=== PATIENT | female | born 1995 | race Caucasian/White ===

== ENCOUNTER 2018-09-03 23:16 | Emergency (ER) | payer BC, OTHER ==
[~2018-09-03 23:16] MED LIST: LOR5/325 PO
--- NOTE | 2018-09-03 23:22 | ER Report ---
History and Physical Time Seen By MD: 23:22 HPI/ROS CHIEF COMPLAINT: Bloody diarrhea HISTORY OF PRESENT ILLNESS: 23-year-old female presents ambulatory to the ER complaining of left lower quadrant pain and bloody diarrhea for one day. She reports nausea and vomiting for the last 12 hours. She's been unable to keep anything down. She feels that she can pass out. She denies recent travel exposure to ill contacts or recent antibiotic use. Patient denies fever or chills. Patient denies family history of inflammatory bowel disease. Patient denies dysuria, frequency or hematuria. REVIEW OF SYSTEMS: Respiratory: No cough, no dyspnea. Cardiovascular: No chest pain, no palpitations. Gastrointestinal: As above Musculoskeletal: No back pain. Allergies: Coded Allergies: mushroom (Verified Allergy, Severe, 09/03/18) cashew nut (Verified Allergy, Intermediate, 09/03/18) ceftibuten (Verified Allergy, Intermediate, 09/03/18) Home Meds Active Scripts Hydrocodone Bit/Acetaminophen (HYDROCODON-ACETAMINOPHEN 5-325) 1 Each Tablet, 1 EACH PO Q4-6H PRN for PAIN, #12 TAKE ONE TABLET BY MOUTH EVERY 4-6 HOURS NEEDED FOR PAIN Prov:SAGRARIO MUÑOZ DO 09/04/18 Ondansetron (ZOFRAN ODT) 4 Mg Tab.rapdis, 4 MG PO every 6 hours PRN for NAUSEA/VOMITING, #10 TAB TAKE 1 TABLET BY MOUTH EVERY 12 HOURS Prov:SAGRARIO MUÑOZ DO 09/04/18 Hydrocodone Bit/Acetaminophen (HYDROCODON-ACETAMINOPHEN 5-325) 1 Each Tablet, 1 EACH PO Q4H PRN for PAIN, #12 TAB 0 Refills Prov:LISA BROUSSARD MD 01/07/17 Past Medical/Surgical History Shingles, reactive airway disease, right wrist fracture Reviewed Nurses Notes: Yes Old Medical Records Reviewed: Yes Hx Substance Use Disorder: No Hx Alcohol Use: No Constitutional Vital Sign - Last 24 Hours 09/03/18 09/03/18 09/03/18 09/03/18 23:23 23:24 23:31 23:46 Temp 98.0 Pulse 94 91 84 Resp 20 B/P (MAP) 131/102 131/102 (112) Pulse Ox 88 95 95 O2 Delivery Room Air 09/04/18 09/04/18 09/04/18 09/04/18 00:01 00:11 00:16 00:51 Pulse 83 64 85 Resp 16 B/P (MAP) 132/85 (101) Pulse Ox 83 90 100 95 O2 Delivery Room Air Physical Exam Vital signs stable, afebrile, pulse ox normal General Appearance: The patient is alert, has no immediate need for airway protection and no current signs of toxicity. Slightly pale appearing, skin warm and dry HEENT: Pupils equal and round no injection. Oropharynx with moist membranes, no erythema Respiratory: Chest is non tender, lungs are clear to auscultation. Cardiac: regular rate and rhythm Gastrointestinal: Abdomen is soft. Mild left lower quadrant tenderness, no rebound or guarding, no masses, bowel sounds hyperactive. Musculoskeletal: Neck: Neck is supple and non tender. No lymphadenopathy Extremities have full range of motion and are non tender. Skin: No rashes or lesions. DIFFERENTIAL DIAGNOSIS: After history and physical exam differential diagnosis was considered for abdominal pain including but not limited to appendicitis, cholecystitis, gastritis, gastroenteritis, food poisoning, hemorrhoids, diverticulitis, colitis and urinary tract infection. Medical Decision Making Data Points Result Diagram: 09/03/18 8545 09/03/18 3600 Laboratory Hematology Test 09/03/18 23:22 09/03/18 23:55 Urine Color [place] Urine Clarity Turbid Urine pH 5.0 pH (4.8-9.5) Urine Specific [place] 1.020 Urine Protein 30 mg/dL (NEGATIVE) Urine Glucose (UA) Negative mg/dL (NEGATIVE) Urine Ketones Negative mg/dL (NEGATIVE) Urine Blood Moderate (NEGATIVE) Urine Nitrite Negative (NEGATIVE) Urine Bilirubin Negative (NEGATIVE) Urine Urobilinogen Negative mg/dL (0.2-1.9) Urine Leukocyte Esterase Large (NEGATIVE) Urine RBC 98 /HPF (0-2/HPF) Urine WBC 450 /HPF (0-5/HPF) Urine WBC Clumps Mod /HPF Urine Squamous Epithelial Cells Many /LPF (</=FEW) Urine Transitional Epithelial Cells Many /LPF (NONE-FEW) Urine Calcium Oxalate Crystals Moderate /HPF (NONE) Urine Amorphous Crystals Few /HPF Urine Bacteria Few /HPF (NONE-FEW) Urine Mucus Few /HPF (NONE-FEW) Red Blood Count 5.61 M/uL (4.17-5.56) Mean Corpuscular Volume 88.3 fL (80.0-96.0) Mean Corpuscular Hemoglobin 30.1 pg (26.0-33.0) Mean Corpuscular Hemoglobin Concent 34.1 g/dL (32.0-36.0) Red Cell Distribution Width 12.1 % (11.5-14.5) Mean Platelet Volume 8.2 fL (7.2-11.1) Neutrophils (%) (Auto) 74.6 % (39.4-72.5) Lymphocytes (%) (Auto) 16.6 % (17.6-49.6) Monocytes (%) (Auto) 5.0 % (4.1-12.4) Eosinophils (%) (Auto) 2.2 % (0.4-6.7) Basophils (%) (Auto) 1.6 % (0.3-1.4) Nucleated RBC Relative Count (auto) 0.0 /100WBC Neutrophils # (Auto) 9.0 K/uL (2.0-7.4) Lymphocytes # (Auto) 2.0 K/uL (1.3-3.6) Monocytes # (Auto) 0.6 K/uL (0.3-1.0) Eosinophils # (Auto) 0.3 K/uL (0.0-0.5) Basophils # (Auto) 0.2 K/uL (0.0-0.1) Nucleated RBC Absolute Count (auto) 0.01 K/uL Erythrocyte Sedimentation Rate 2 mm/HOUR (0-20) Prothrombin Time 13.2 seconds (12.0-14.4) Prothromb Time International Ratio 1.00 Activated Partial Thromboplast Time 29 seconds (23-35) Sodium Level 141 mmol/L (137-145) Potassium Level 3.6 mmol/L (3.5-5.0) Chloride Level 101 mmol/L (98-107) Carbon Dioxide Level 25 mmol/L (22-31) Blood Urea Nitrogen 10 mg/dl (7-18) Creatinine 0.80 mg/dl (0.52-1.04) Glomerular Filtration Rate Calc > 60.0 Random Glucose 111 mg/dl (75-110) Calcium Level 10.3 mg/dl (8.4-10.2) Total Bilirubin 0.4 mg/dl (0.2-1.3) Aspartate Amino Transf (AST/SGOT) 26 U/L (0-35) Alanine Aminotransferase (ALT/SGPT) 36 U/L (0-56) Alkaline Phosphatase 94 U/L (0-126) C-Reactive Protein < 0.5 mg/dl (<1.0) Total Protein 8.5 g/dl (6.3-8.2) Albumin 4.5 g/dl (3.5-5.0) Amylase Level 103 U/L (0-110) Lipase 133 U/L (23-300) Human Chorionic Gonadotropin, Qual Negative (NEGATIVE) Chemistry Test 09/03/18 23:22 09/03/18 23:55 Urine Color Zonia Urine Clarity Turbid Urine pH 5.0 pH (4.8-9.5) Urine Specific [place] 1.020 Urine Protein 30 mg/dL (NEGATIVE) Urine Glucose (UA) Negative mg/dL (NEGATIVE) Urine Ketones Negative mg/dL (NEGATIVE) Urine Blood Moderate (NEGATIVE) Urine Nitrite Negative (NEGATIVE) Urine Bilirubin Negative (NEGATIVE) Urine Urobilinogen Negative mg/dL (0.2-1.9) Urine Leukocyte Esterase Large (NEGATIVE) Urine RBC 98 /HPF (0-2/HPF) Urine WBC 450 /HPF (0-5/HPF) Urine WBC Clumps Mod /HPF Urine Squamous Epithelial Cells Many /LPF (</=FEW) Urine Transitional Epithelial Cells Many /LPF (NONE-FEW) Urine Calcium Oxalate Crystals Moderate /HPF (NONE) Urine Amorphous Crystals Few /HPF Urine Bacteria Few /HPF (NONE-FEW) Urine Mucus Few /HPF (NONE-FEW) White Blood Count 12.1 k/uL (4.5-11.0) Red Blood Count 5.61 M/uL (4.17-5.56) Hemoglobin 16.9 g/dL (12.0-16.0) Hematocrit 49.5 % (34.0-47.0) Mean Corpuscular Volume 88.3 fL (80.0-96.0) Mean Corpuscular Hemoglobin 30.1 pg (26.0-33.0) Mean Corpuscular Hemoglobin Concent 34.1 g/dL (32.0-36.0) Red Cell Distribution Width 12.1 % (11.5-14.5) Platelet Count 277 K/uL (150-450) Mean Platelet Volume 8.2 fL (7.2-11.1) Neutrophils (%) (Auto) 74.6 % (39.4-72.5) Lymphocytes (%) (Auto) 16.6 % (17.6-49.6) Monocytes (%) (Auto) 5.0 % (4.1-12.4) Eosinophils (%) (Auto) 2.2 % (0.4-6.7) Basophils (%) (Auto) 1.6 % (0.3-1.4) Nucleated RBC Relative Count (auto) 0.0 /100WBC Neutrophils # (Auto) 9.0 K/uL (2.0-7.4) Lymphocytes # (Auto) 2.0 K/uL (1.3-3.6) Monocytes # (Auto) 0.6 K/uL (0.3-1.0) Eosinophils # (Auto) 0.3 K/uL (0.0-0.5) Basophils # (Auto) 0.2 K/uL (0.0-0.1) Nucleated RBC Absolute Count (auto) 0.01 K/uL Erythrocyte Sedimentation Rate 2 mm/HOUR (0-20) Prothrombin Time 13.2 seconds (12.0-14.4) Prothromb Time International Ratio 1.00 Activated Partial Thromboplast Time 29 seconds (23-35) Glomerular Filtration Rate Calc > 60.0 Calcium Level 10.3 mg/dl (8.4-10.2) Total Bilirubin 0.4 mg/dl (0.2-1.3) Aspartate Amino Transf (AST/SGOT) 26 U/L (0-35) Alanine Aminotransferase (ALT/SGPT) 36 U/L (0-56) Alkaline Phosphatase 94 U/L (0-126) C-Reactive Protein < 0.5 mg/dl (<1.0) Total Protein 8.5 g/dl (6.3-8.2) Albumin 4.5 g/dl (3.5-5.0) Amylase Level 103 U/L (0-110) Lipase 133 U/L (23-300) Human Chorionic Gonadotropin, Qual Negative (NEGATIVE) Coagulation Test 09/03/18 23:55 Prothrombin Time 13.2 seconds Prothromb Time International Ratio 1.00 Activated Partial Thromboplast Time 29 seconds Urinalysis Test 09/03/18 23:22 Urine Color Zonia Urine Clarity Turbid Urine pH 5.0 pH (4.8-9.5) Urine Specific [place] 1.020 Urine Protein 30 mg/dL (NEGATIVE) Urine Glucose (UA) Negative mg/dL (NEGATIVE) Urine Ketones Negative mg/dL (NEGATIVE) Urine Blood Moderate (NEGATIVE) Urine Nitrite Negative (NEGATIVE) Urine Bilirubin Negative (NEGATIVE) Urine Urobilinogen Negative mg/dL (0.2-1.9) Urine Leukocyte Esterase Large (NEGATIVE) Urine RBC 98 /HPF (0-2/HPF) Urine WBC 450 /HPF (0-5/HPF) Urine WBC Clumps Mod /HPF Urine Squamous Epithelial Cells Many /LPF (</=FEW) Urine Transitional Epithelial Cells Many /LPF (NONE-FEW) Urine Calcium Oxalate Crystals Moderate /HPF (NONE) Urine Amorphous Crystals Few /HPF Urine Bacteria Few /HPF (NONE-FEW) Urine Mucus Few /HPF (NONE-FEW) ED Course/Re-evaluation Clinical Indication for ER IV: Hydration, IV Access ED Course Patient was admitted to an examination room. H&P was done. The differential diagnoses was considered. On clinical examination. Patient has benign nonsurgical abdominal exam. She is treated with IV fluid hydration. Her diagnostic studies show mild elevation with blood cell count of 12,000. Her other diagnostic studies are unremarkable. Patient's advised a clear liquid diet for bowel rest. She is discharged home on hydrocodone and Zofran. She is advised ibuprofen for inflammatory pain relief. Patient advised to follow-up with primary care if unimproved in 3-5 days. Decision to Disposition Date: Sep 04, 2018 Decision to Disposition Time: 00:26 Depart Departure Latest Vital Signs Vital Signs Date Time Temp Pulse Resp B/P (MAP) Pulse Ox O2 Delivery O2 Flow Rate FiO2 09/04/18 00:51 85 16 132/85 (101) 95 Room Air 09/03/18 23:23 98.0 Impression: Primary Impression: Bloody diarrhea Additional Impression: Left lower quadrant abdominal pain of unknown etiology Condition: Improved Disposition: HOME OR SELF-CARE Referrals: TAURUS BROWN MD New Scripts Hydrocodone Bit/Acetaminophen (HYDROCODON-ACETAMINOPHEN 5-325) 1 Each Tablet 1 EACH PO Q4-6H PRN for PAIN, #12 TAKE ONE TABLET BY MOUTH EVERY 4-6 HOURS NEEDED FOR PAIN Prov: SAGRARIO MUÑOZ DO 09/04/18 Ondansetron (ZOFRAN ODT) 4 Mg Tab.rapdis 4 MG PO every 6 hours PRN for NAUSEA/VOMITING, #10 TAB TAKE 1 TABLET BY MOUTH EVERY 12 HOURS Prov: SAGRARIO MUÑOZ DO 09/04/18 Patient Instructions: Acute Diarrhea (ED), Clear Liquid Diet (ED) Additional Instructions: Take ibuprofen 200 mg 3-4 tablets 3 times a day for inflammatory pain relief Follow clear liquid diet for 24-48 hours, then advance to the brat diet, bananas, rice, applesauce and toast Follow-up with your primary care if unimproved in 3-5 days, information for provided Problem Qualifiers SAGRARIO MUÑOZ DO Sep 03, 2018 23:22
[2018-09-03] MEDS ORDERED: NS(*) 0.9% 1000 ML BAG 1,000 ML IV ONE (23:28)
[2018-09-03] MEDS ORDERED: fentaNYL CITR 100 MCG/2 ML AMP IVP ONE (23:30)
[2018-09-03] MEDS ORDERED: ONDANSETRON 4 MG/2 ML VIAL IVP ONE (23:30)
[2018-09-04 00:07] LABS: PLATELET COUNT, AUTOMATED 277 K/uL (150-450)
[2018-09-04] MEDS ORDERED: ACET/HYDROC 5/325MG TH ER ONLY 2 TAB/BOTTLE PO ONE (00:50)
[2018-09-04] MEDS ORDERED: ONDA4TAB PO (00:50)
[2018-09-04] MEDS ORDERED: LOR5/325 PO (00:50)
[2018-09-04] MEDS ORDERED: ONDANSETRON 4 MG ODT TH SL ONE (00:50)
[2018-09-04 00:51] VITALS: BP 132/85
== END 2018-09-04 01:03 | disposition home or self-care (01) ==
LOC: ER 23:59
DX: K92.1 Melena (principal); R19.7 Diarrhea, unspecified; R10.32 Left lower quadrant pain
CPT/HCPCS: 81001; 82150; 83690; 84703; 85025; 85610; 85651; 85730; 86140; 96361; 96374; 96375; 99284; J2405; J3010; J7030; S0119; 82040; 82247; 82310; 82374; 82435; 82565; 82947; 84075; 84132; 84155; 84295; 84450; 84460; 84520

== ENCOUNTER → 2018-09-14 | Outpatient (CLI) | payer BC ==
[~2018-09-14] MED LIST changes: +FLU60VIA41 IM; +ONDA4TAB PO
[2018-09-14 11:23] LABS: PLATELET COUNT, AUTOMATED 240 K/uL (150-450)
== END ==
LOC: LAB 10:56
PROVIDERS: ATTEND Nurse Practitioner Family
DX: R10.2 Pelvic and perineal pain (principal); N39.0 Urinary tract infection, site not specified; K59.00 Constipation, unspecified; R79.9 Abnormal finding of blood chemistry, unspecified
CPT/HCPCS: 36415; 81001; 82040; 82247; 82310; 82374; 82435; 82565; 82947; 84075; 84132; 84155; 84295; 84439; 84443; 84450; 84460; 84480; 84520; 85025; 87088

== ENCOUNTER → 2018-10-27 | Outpatient (CLI) | payer BC ==
[~2018-10-27] MED LIST changes: +RIZA5TAB26 PO
== END ==
LOC: LAB 10:53
PROVIDERS: ATTEND Nurse Practitioner Family
DX: R35.0 Frequency of micturition (principal)
CPT/HCPCS: 81001

== ENCOUNTER 2018-12-29 12:42 | Emergency (ER) | payer BC ==
--- NOTE | 2018-12-29 12:49 | ER Report ---
History and Physical Time Seen By MD: 12:49 HPI/ROS CHIEF COMPLAINT: Head felt hot, felt like brain was shaking and passed out HISTORY OF PRESENT ILLNESS: 23-year-old female patient presents to emergency room with complaint of her head feeling hot, she said she felt like her pain was shaking him and she passed out. Patient states that she has had this happen in the past. She states this never been quite as bad as this. She states that she h as seen a neurologist in the past which classify these as complex migraines. She states that she is not had a migraine in years. She states that she has tried several medications none of which have seemed to help. She denies having any fevers, chills, nausea, vomiting or diarrhea. Patient states she did work out today prior to coming to work. She states she's not had any changes any medications. She is recently stopped taking all of her control and states that she is just using condoms with intercourse. REVIEW OF SYSTEMS: Respiratory: No cough, no dyspnea. Cardiovascular: No chest pain, no palpitations. Gastrointestinal: No vomiting, no abdominal pain. Musculoskeletal: No back pain. Allergies: Coded Allergies: mushroom (Verified Allergy, Severe, 09/03/18) cashew nut (Verified Allergy, Intermediate, 09/03/18) ceftibuten (Verified Allergy, Intermediate, 09/03/18) Home Meds Active Scripts Rizatriptan Benzoate (RIZATRIPTAN) 5 Mg Tablet, 1 TAB PO DAILY, #9 TAB 0 Refills take 1 tab at onset of migraine. If not helpful after 2 hours take a 2nd tab. Prov:RUPINDER TIERNEY APRN PATHOLOGICAL TECHNICIAN-C 10/15/18 Hydrocodone Bit/Acetaminophen (HYDROCODON-ACETAMINOPHEN 5-325) 1 Each Tablet, 1 EACH PO Q4-6H PRN for PAIN, #12 TAKE ONE TABLET BY MOUTH EVERY 4-6 HOURS NEEDED FOR PAIN Prov:SAGRARIO MUÑOZ DO 09/04/18 Ondansetron (ZOFRAN ODT) 4 Mg Tab.rapdis, 4 MG PO every 6 hours PRN for NAUSEA/VOMITING, #10 TAB TAKE 1 TABLET BY MOUTH EVERY 12 HOURS Prov:SAGRARIO MUÑOZ DO 09/04/18 Hydrocodone Bit/Acetaminophen (HYDROCODON-ACETAMINOPHEN 5-325) 1 Each Tablet, 1 EACH PO Q4H PRN for PAIN, #12 TAB 0 Refills Prov:LISA BROUSSARD Mary Beth FLORES 01/07/17 Past Medical/Surgical History Patient has a past medical history shingles, migraines, palpitations, reactive airway, right wrist fracture, depression. Patient denies any surgical history. Reviewed Nurses Notes: Yes Smoking Status: Never Smoker Hx Substance Use Disorder: No Hx Alcohol Use: No Constitutional Vital Sign - Last 24 Hours 12/29/18 12/29/18 12/29/18 12/29/18 12:46 12:46 13:00 13:02 Temp 98.5 Pulse 81 72 Resp 16 12 B/P (MAP) 132/84 (100) 132/84 116/91 (99) Pulse Ox 97 81 O2 Delivery Room Air Physical Exam General Appearance: The patient is alert, has no immediate need for airway protection and no current signs of toxicity. Eyes: Pupils equal and round no injection. Respiratory: Chest is non tender, lungs are clear to auscultation. Cardiac: regular rate and rhythm Gastrointestinal: Abdomen is soft and non tender, no masses, bowel sounds normal. Musculoskeletal: Neck: Neck is supple and non tender. Extremities have full range of motion and are non tender. Skin: No rashes or lesions. Neuro: Patient is alert and oriented 4, cranial nerves II through XII grossly intact. DIFFERENTIAL DIAGNOSIS: After history and physical exam differential diagnosis was considered for syncope including but not limited to vasovagal syncope, arrhythmia, dehydration, and blood loss. Included in the differential is migraine. Medical Decision Making Data Points Result Diagram: 12/29/18 1300 12/29/18 1300 Laboratory Hematology Test 12/29/18 13:00 12/29/18 13:12 Red Blood Count 4.94 M/uL (4.17-5.56) Mean Corpuscular Volume 89.9 fL (80.0-96.0) Mean Corpuscular Hemoglobin 30.1 pg (26.0-33.0) Mean Corpuscular Hemoglobin Concent 33.5 g/dL (32.0-36.0) Red Cell Distribution Width 12.7 % (11.5-14.5) Mean Platelet Volume 8.3 fL (7.2-11.1) Neutrophils (%) (Auto) 69.3 % (39.4-72.5) Lymphocytes (%) (Auto) 24.0 % (17.6-49.6) Monocytes (%) (Auto) 5.2 % (4.1-12.4) Eosinophils (%) (Auto) 0.5 % (0.4-6.7) Basophils (%) (Auto) 1.0 % (0.3-1.4) Nucleated RBC Relative Count (auto) 0.1 /100WBC Neutrophils # (Auto) 6.0 K/uL (2.0-7.4) Lymphocytes # (Auto) 2.1 K/uL (1.3-3.6) Monocytes # (Auto) 0.4 K/uL (0.3-1.0) Eosinophils # (Auto) 0.0 K/uL (0.0-0.5) Basophils # (Auto) 0.1 K/uL (0.0-0.1) Nucleated RBC Absolute Count (auto) 0.01 K/uL Sodium Level 136 mmol/L (137-145) Potassium Level 3.4 mmol/L (3.5-5.0) Chloride Level 102 mmol/L (98-107) Carbon Dioxide Level 21 mmol/L (22-31) Blood Urea Nitrogen 9 mg/dl (7-18) Creatinine 0.70 mg/dl (0.52-1.04) Glomerular Filtration Rate Calc > 60.0 Random Glucose 81 mg/dl (75-110) Calcium Level 10.0 mg/dl (8.4-10.2) Total Bilirubin 0.7 mg/dl (0.2-1.3) Aspartate Amino Transf (AST/SGOT) 22 U/L (0-35) Alanine Aminotransferase (ALT/SGPT) 20 U/L (0-56) Alkaline Phosphatase 93 U/L (0-126) Total Protein 8.3 g/dl (6.3-8.2) Albumin 5.0 g/dl (3.5-5.0) Human Chorionic Gonadotropin, Qual Negative (NEGATIVE) Urine Color Straw Urine Clarity Clear Urine pH 6.0 pH (4.8-9.5) Urine Specific [place] 1.004 Urine Protein Negative mg/dL (NEGATIVE) Urine Glucose (UA) Negative mg/dL (NEGATIVE) Urine Ketones 20 mg/dL (NEGATIVE) Urine Blood Negative (NEGATIVE) Urine Nitrite Negative (NEGATIVE) Urine Bilirubin Negative (NEGATIVE) Urine Urobilinogen Negative mg/dL (0.2-1.9) Urine Leukocyte Esterase Negative (NEGATIVE) Urine RBC <1 /HPF (0-2/HPF) Urine WBC None /HPF (0-5/HPF) Urine Squamous Epithelial Cells Few /LPF (</=FEW) Urine Bacteria Few /HPF (NONE-FEW) Urine Mucus None /HPF (NONE-FEW) Chemistry Test 12/29/18 13:00 12/29/18 13:12 White Blood Count 8.6 k/uL (4.5-11.0) Red Blood Count 4.94 M/uL (4.17-5.56) Hemoglobin 14.9 g/dL (12.0-16.0) Hematocrit 44.4 % (34.0-47.0) Mean Corpuscular Volume 89.9 fL (80.0-96.0) Mean Corpuscular Hemoglobin 30.1 pg (26.0-33.0) Mean Corpuscular Hemoglobin Concent 33.5 g/dL (32.0-36.0) Red Cell Distribution Width 12.7 % (11.5-14.5) Platelet Count 231 K/uL (150-450) Mean Platelet Volume 8.3 fL (7.2-11.1) Neutrophils (%) (Auto) 69.3 % (39.4-72.5) Lymphocytes (%) (Auto) 24.0 % (17.6-49.6) Monocytes (%) (Auto) 5.2 % (4.1-12.4) Eosinophils (%) (Auto) 0.5 % (0.4-6.7) Basophils (%) (Auto) 1.0 % (0.3-1.4) Nucleated RBC Relative Count (auto) 0.1 /100WBC Neutrophils # (Auto) 6.0 K/uL (2.0-7.4) Lymphocytes # (Auto) 2.1 K/uL (1.3-3.6) Monocytes # (Auto) 0.4 K/uL (0.3-1.0) Eosinophils # (Auto) 0.0 K/uL (0.0-0.5) Basophils # (Auto) 0.1 K/uL (0.0-0.1) Nucleated RBC Absolute Count (auto) 0.01 K/uL Glomerular Filtration Rate Calc > 60.0 Calcium Level 10.0 mg/dl (8.4-10.2) Total Bilirubin 0.7 mg/dl (0.2-1.3) Aspartate Amino Transf (AST/SGOT) 22 U/L (0-35) Alanine Aminotransferase (ALT/SGPT) 20 U/L (0-56) Alkaline Phosphatase 93 U/L (0-126) Total Protein 8.3 g/dl (6.3-8.2) Albumin 5.0 g/dl (3.5-5.0) Human Chorionic Gonadotropin, Qual Negative (NEGATIVE) Urine Color Straw Urine Clarity Clear Urine pH 6.0 pH (4.8-9.5) Urine Specific [place] 1.004 Urine Protein Negative mg/dL (NEGATIVE) Urine Glucose (UA) Negative mg/dL (NEGATIVE) Urine Ketones 20 mg/dL (NEGATIVE) Urine Blood Negative (NEGATIVE) Urine Nitrite Negative (NEGATIVE) Urine Bilirubin Negative (NEGATIVE) Urine Urobilinogen Negative mg/dL (0.2-1.9) Urine Leukocyte Esterase Negative (NEGATIVE) Urine RBC <1 /HPF (0-2/HPF) Urine WBC None /HPF (0-5/HPF) Urine Squamous Epithelial Cells Few /LPF (</=FEW) Urine Bacteria Few /HPF (NONE-FEW) Urine Mucus None /HPF (NONE-FEW) Urinalysis Test 12/29/18 13:12 Urine Color Straw Urine Clarity Clear Urine pH 6.0 pH (4.8-9.5) Urine Specific [place] 1.004 Urine Protein Negative mg/dL (NEGATIVE) Urine Glucose (UA) Negative mg/dL (NEGATIVE) Urine Ketones 20 mg/dL (NEGATIVE) Urine Blood Negative (NEGATIVE) Urine Nitrite Negative (NEGATIVE) Urine Bilirubin Negative (NEGATIVE) Urine Urobilinogen Negative mg/dL (0.2-1.9) Urine Leukocyte Esterase Negative (NEGATIVE) Urine RBC <1 /HPF (0-2/HPF) Urine WBC None /HPF (0-5/HPF) Urine Squamous Epithelial Cells Few /LPF (</=FEW) Urine Bacteria Few /HPF (NONE-FEW) Urine Mucus None /HPF (NONE-FEW) EKG/Imaging Imaging CT Head without contrast Indication: Syncope. Comparison: None available Technique: Axial CT images were obtained through the brain from the skull base to the vertex without administration of IV contrast. Reformatted coronal and sagittal images were also obtained. One of the following dose optimization techniques was utilized in the performance of this exam: automated exposure control; adjustment of the mA and/or kV according to the patient's size; or use of an iterative reconstruction technique. Specific details can be referenced in the facility's radiology CT exam operational policy. Findings: No evidence of mass, mass effect, or midline shift. No acute intracranial hemorrhage or acute territorial infarction. No extra-axial fluid collection or hydrocephalus. No abnormal density. Hernandes/white matter differentiation appears normal. Bony structures show no fractures or lesions. The visualized paranasal sinuses and mastoid air cells are clear. IMPRESSION: 1. Negative unenhanced CT of the head. Report Dictated By: Mundo Meyer at 12/29/2018 2:23 PM Report E-Signed By: Mundo Meyer at 12/29/2018 2:26 PM ED Course/Re-evaluation ED Course Patient was admitted and examined, history and physical were obtained. Differential diagnoses were considered. On examination lungs are clear, heart is regular, abdomen is soft and nontender. Neurologically the patient is intact. She states she does feel like she is in a fog. An IV was started, a CBC, CMP, hCG, urinalysis were obtained. Lab results were unremarkable. A CT scan of the head was done which was also negative. In talking with the patient patient states she's had episodes like these in the past and states that she feels that this is similar but different. She states that it's worsened this time in spite of the past. With the labs and imaging being negative I believe that likely she does have some dehydration, as the patient did have 20 ketones in her urine, and that resulted in a migraine. I believe that she had a or without the headache. I believe is the aura that made her pass out. I will go ahead and discharge patient home this time. She is to follow-up with her primary care provider early next week. Patient verbalized understanding and agreement with plan. Is quite possible that they will need to repeat an EEG to make sure that this is not a seizure like activity. Patient may ultimately need to follow back up with neurology. 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 Get plenty of rest. Follow up with Rupinder Tierney in the early part of next week. Return to the ER if condition worsens. Continue with your normal medications. ROSLYN HERNANDEZ Dec 29, 2018 12:49
[2018-12-29] MEDS ORDERED: NS(*) 0.9% 1000 ML BAG 1,000 ML IV ONE (12:57)
[2018-12-29 13:00] VITALS: BP 116/91
--- NOTE | 2018-12-29 13:09 | EKG ---
FACILITY: [facility] PATIENT NAME: VIJAYA SAWANT : [id number] MR: [id number] V: [id number] EXAM DATE: ORDERING PHYSICIAN: ROSLYN HERNANDEZ TECHNOLOGIST: Test Reason : syncope Blood Pressure : / mmHG Vent. Rate : 064 BPM Atrial Rate : 064 BPM P-R Int : 152 ms QRS Dur : 078 ms QT Int : 388 ms P-R-T Axes : 060 081 050 degrees QTc Int : 400 ms Sinus rhythm Otherwise normal ECG No previous ECGs available Confirmed by NELL JOHNS ([id number]) on 12/29/2018 4:30:47 PM Referred By: Confirmed By:NELL JOHNS
[2018-12-29 13:10] LABS: PLATELET COUNT, AUTOMATED 231 K/uL (150-450)
--- NOTE | 2018-12-29 14:30 | RADIOLOGY IMAGING REPORT ---
FACILITY: [facility] - [place] PATIENT NAME: Татьяна Corley : 1995 MR: [id number] V: [id number] EXAM DATE: ORDERING PHYSICIAN: ROSLYN HERNANDEZ TECHNOLOGIST: Location: [facility] Patient: Татьяна Corley : 1995 Visit/Account:[id number] Date of Sevice: 12/29/2018 CT Head without contrast Indication: Syncope. Comparison: None available Technique: Axial CT images were obtained through the brain from the skull base to the vertex without administration of IV contrast. Reformatted coronal and sagittal images were also obtained. One of the following dose optimization techniques was utilized in the performance of this exam: autom ated exposure control; adjustment of the mA and/or kV according to the patient's size; or use of an i terative reconstruction technique. Specific details can be referenced in the facility's radiology CT exam operational policy. Findings: No evidence of mass, mass effect, or midline shift. No acute intracranial hemorrhage or acute territorial infarction. No extra-axial fluid collection or hydrocephalus. No abnormal density. Hernandes/white matter differentiat ion appears normal. Bony structures show no fractures or lesions. The visualized paranasal sinuses and mastoid air cells are clear. IMPRESSION: 1. Negative unenhanced CT of the head. Report Dictated By: Mundo Meyer at 12/29/2018 2:23 PM Report E-Signed By: Mundo Meyer at 12/29/2018 2:26 PM WSN:[id number]
[2018-12-31] MEDS ORDERED: EXCUSE (12:01)
== END 2018-12-29 14:59 | disposition home or self-care (01) ==
LOC: ER 13:11
DX: G43.109 Migraine with aura, not intractable, without status migrainosus (principal)
CPT/HCPCS: 70450; 81001; 84703; 85025; 93005; 96360; 99284; J7030; 82040; 82247; 82310; 82374; 82435; 82565; 82947; 84075; 84132; 84155; 84295; 84450; 84460; 84520

== ENCOUNTER → 2018-12-31 | Outpatient (CLI) | payer BC ==
[~2018-12-31] MED LIST changes: +EXCUSE
== END ==
LOC: LAB 12:06
PROVIDERS: ATTEND Nurse Practitioner Family
DX: R55 Syncope and collapse (principal); R73.01 Impaired fasting glucose; R09.02 Hypoxemia
CPT/HCPCS: 36415; 83036; 83735; 85379

== ENCOUNTER → 2019-01-03 | Outpatient (CLI) | payer BC ==
--- NOTE | 2019-01-03 11:07 | RADIOLOGY IMAGING REPORT ---
FACILITY: [facility] - [place] PATIENT NAME: Татьяна Corley : 1995 MR: [id number] V: [id number] EXAM DATE: ORDERING PHYSICIAN: RUPINDER TIERNEY TECHNOLOGIST: Location: [facility] Patient: Татьяна Corley : 1995 Visit/Account:[id number] Date of Sevice: 01/03/2019 CHEST PA LAT Indication: hypoxia Comparison: None. Findings: Lungs: Clear. Mediastinum/pulmonary vasculature: Heart size and pulmonary vasculature are normal. Bones/soft tissues: Normal. IMPRESSION: Clear lungs. Report Dictated By: Rashawn Davis at 01/03/2019 10:55 AM Report E-Signed By: Rashawn Davis at 01/03/2019 10:56 AM WSN:[id number]
== END ==
LOC: RAD 10:17
PROVIDERS: ATTEND Nurse Practitioner Family
DX: R09.02 Hypoxemia (principal)
CPT/HCPCS: 71046

== ENCOUNTER → 2019-01-07 | Outpatient (CLI) | payer BC | LOC: RESP 04:19 | PROVIDERS: ATTEND Nurse Practitioner Family | DX: J98.4 Other disorders of lung (principal) | CPT/HCPCS: 94060; 94726; 94729 ==

== ENCOUNTER → 2019-01-10 | Outpatient (CLI) | payer BC | LOC: US 01:23 | PROVIDERS: ATTEND Nurse Practitioner Family | DX: I35.1 Nonrheumatic aortic (valve) insufficiency (principal) | CPT/HCPCS: 93306 ==

== ENCOUNTER → 2019-01-25 | Outpatient (CLI) | payer OTHER, BC ==
[~2019-01-25] MED LIST changes: +IOPAMIDOL 76% 100 ML INFUS BTL 100 ML ONE; +IPRA3AMP10 IH; +NS(*) 0.9% 50 ML BAG 50 ML ONE; +OXYGENHOME INH
--- NOTE | 2019-01-25 13:43 | RADIOLOGY IMAGING REPORT ---
FACILITY: [facility] - [place] PATIENT NAME: Татьяна Corley : 1995 MR: [id number] V: [id number] EXAM DATE: ORDERING PHYSICIAN: RUPINDER TIERNEY TECHNOLOGIST: Location: [facility] [place] Patient: Татьяна Corley : 1995 Visit/Account:[id number] Date of Sevice: 01/25/2019 CT CTA CHEST W & W/O CON HISTORY: hypoxia ADDITIONAL HISTORY: None. TECHNIQUE: CTA chest with intravenous contrast. Axial imaging acquired following administration of IV contrast timed for maximum opacification of the pulmonary arterial vasculature. Slab 3-D MIP raine nstructed images were also created for further evaluation and interpretation. Reconstruction of the [facility] data set includes multiplanar 2-D in the sagittal and coronal planes and 3-D reconstructed tyler nal slab MIP series. 3-D images were created by the technologist.Dose Lowering Technique One of the following dose optimization techniques was utilized in the performance of this exam: Autom ated exposure control; adjustment of the mA and/or kV according to the patient's size; or use of an i terative reconstruction technique. Specific details can be referenced in the facility's radiology C T exam operational policy. CONTRAST: 75 mL Isovue-370 COMPARISON: Two view chest January 03, 2019 FINDINGS: Lungs/pleura: There is a 3 mm noncalcified subpleural nodule anterior aspect of the right middle lob e. There is no evidence of pulmonary infiltrates or pleural effusions Heart/vessels: Negative. There are no filling defects seen in the pulmonary arteries worrisome for a pulmonary embolus. Mediastinum/lymph nodes: Negative. Visualized upper abdomen: Negative. Bones/soft tissues: There is a gentle dextroconvex scoliosis in the thoracic spine Additional findings: None IMPRESSION: No evidence of pulmonary emboli or pulmonary infiltrates 3 mm noncalcified subpleural nodule anterior aspect right middle lobe [employer] FOLLOW-UP GUIDELINES FOR NEWLY DETECTED INCIDENTAL NODULES IN PERSONS 35 YEARS OF AGE OR OLDER. *These recommendations do NOT apply to lung cancer screening, patients with immunosuppression or meghann ents with a known primary malignancy. SOLITARY SOLID NODULE If nodule size is < 6 mm: * Low risk patient ? No routine follow-up. * High risk patient ? Optional CT at 12 months. If nodule size is 6-8 mm: * Low risk patient ? CT at 6-12 months, then consider CT at 18-24 months if no change. * High risk patient ? CT at 6-12 months, then CT at 18-24 months if no change. If nodule size is > 8 mm: * Low risk patient ? Consider CT at 3, 9 and 24 months (if no change), PET/CT, tissue sampling or a combination thereof. * High risk patient ? Consider CT at 3, 9 and 24 months (if no change), PET/CT, tissue sampling, or a combination thereof. LOW RISK PATIENT: Minimal or absent history of tobacco use and of other known risk factors. HIGH RISK PATIENT: Tobacco use, family history of lung cancer, upper pulmonary lobe location of nodul e, presence of emphysema, pulmonary fibrosis, older age. Avery H, Jen DP, Mohindero JM, et al. Guidelines for Management of Incidental Pulmonary Nodules Dete cted on CT Images: From the Fleischner Society 2017. Radiology. [facility] Report Dictated By: Brandy Maria MD at 01/25/2019 1:34 PM Report E-Signed By: Brandy Maria MD at 01/25/2019 1:38 PM DASHAWNN:[email or web address]
== END ==
LOC: CT 07:03
PROVIDERS: ATTEND Nurse Practitioner Family
DX: R91.1 Solitary pulmonary nodule (principal); G43.109 Migraine with aura, not intractable, without status migrainosus; R09.02 Hypoxemia; R55 Syncope and collapse
CPT/HCPCS: 36415; 71275; 85651; 86038; 86140; 86200; 86430; J7050; Q9967

== ENCOUNTER → 2019-01-31 | Outpatient (CLI) | payer OTHER, BC ==
[~2019-01-31] MED LIST changes: -IOPAMIDOL 76% 100 ML INFUS BTL 100 ML ONE; -NS(*) 0.9% 50 ML BAG 50 ML ONE; +Return to Work
== END ==
LOC: LAB 14:58
PROVIDERS: ATTEND Family Medicine
DX: B02.9 Zoster without complications (principal)
CPT/HCPCS: 87252; 87253

== ENCOUNTER → 2019-02-02 | Outpatient (CLI) | payer OTHER, BC ==
[~2019-02-02] MED LIST changes: +ESCI5TAB3 PO
--- NOTE | 2019-02-06 19:54 | RT HOLTER TEST ---
FACILITY: [facility] - [place] PATIENT NAME: VIJAYA SAWNAT : [id number] MR: [id number] V: [id number] EXAM DATE: ORDERING PHYSICIAN: RUPINDER TIERNEY TECHNOLOGIST: Marli-irena date: 2019-02-02 08:12:00 Duration: 47:59:00 Test Indications: SYNCOPE Medications: ACYCLOVIR GABAPENTIN ESCITALOPRAM 049549 QRS complexes 10 Ventricular ectopics which represent <1 % of total QRS comp. 292 Supraventricular ectopics which represent <1 % of total QRS comp. * Paced QRS complexes which represent % of total QRS comp. VENTRICULAR ECTOPY 10 Isolated 0 Bigeminal Cycles 0 Couplets 0 Runs 0 Beats in Runs * Beats LONGEST at * BPM at :: -- * Beats FASTEST at * BPM at :: -- SUPRAVENTRICULAR ECTOPY 98 Isolated 97 Couplets 0 Runs 0 Beats in Runs * Beats LONGEST at * BPM at :: -- * Beats FASTEST at * BPM at :: -- HEART RATES 39 MIN at 04:11:33 2019-02-03 68 AVG 146 MAX at 13:38:14 2019-02-02 LONGEST RR 0.992 secs at 10:45:02 2019-02-02 S-T LEVELS Channel 1 -12.800 mm MIN at 08:12:00 2019-02-02 -12.800 mm MAX at 08:12:00 2019-02-02 Channel 2 -12.800 mm MIN at 08:12:00 2019-02-02 -12.800 mm MAX at 08:12:00 2019-02-02 Channel 3 -12.800 mm MIN at 08:12:00 2019-02-02 -12.800 mm MAX at 08:12:00 2019-02-02 Rare ventricular ectopy. No couplets, triplets,or runs noted. It appears there are episoes of intermittent ectopic atrial focii/wandering atrial pacemaker. There a re several different P wave morphologies noted throughout the recording. No pauses of more than two (2.0) seconds were recorded. Confirmed by ELISSA HAUSER ([id number]) on 02/06/2019 7:53:30 PM Referred By: Overread By: ELISSA HAUSER
== END ==
LOC: RESP 00:02
PROVIDERS: ATTEND Nurse Practitioner Family
DX: R55 Syncope and collapse (principal)
CPT/HCPCS: 93225; 93226